=== PATIENT | female | born 1995 | race Caucasian/White ===

== ENCOUNTER 2019-02-10 18:49 | Emergency (ER) | payer BC, MEDICAID, OTHER ==
[~2019-02-10] VITALS: Ht 149.9 cm; Wt 46.0 kg
[2019-02-10 18:57] VITALS: Ht 149.9 cm; Wt 46.0 kg
--- NOTE | 2019-02-10 20:00 | ERD ---
ER Documentation Chief Complaint Chief Complaint on and off left nosebleeding since yesterday HPI 23-year-old female with no reported past medical history presents with complaint of left-sided nosebleed since yesterday. Patient states she had a rhinoplasty approximately 2 months ago, no reported complications. Nosebleed started after she thought she had a "bugger" and left nostril which she tried to remove multiple times. No reported fall or trauma. After each attempt noticed bleeding from left nostril. Most recent episode of bleeding approximately 1 to 2 hours ago which stopped spontaneously. Explained to patient in detail that she is not to manipulate nostril as she has of a clot forming which will aid and stopping her bleeding. She otherwise is without complaint. Denies shortness of breath or any respiratory symptoms. ROS All systems reviewed and are negative except as per history of present illness. Allergies Allergies: Coded Allergies: No Known Drug Allergies (Verified Allergy, Unknown, 02/10/19) PMhx/Soc Medical and Surgical Hx: pt denies Medical Hx, pt denies Surgical Hx Hx Alcohol Use: No Hx Substance Use: No Hx Tobacco Use: No Smoking Status: Never smoker FmHx Family History: No diabetes, No coronary disease, No other Physical Exam Vitals Vital Signs Date Temp Pulse Resp B/P (MAP) Pulse Ox O2 O2 Flow FiO2 Time Delivery Rate 02/10/19 98.2 95 20 129/59 100 18:57 (82) Physical Exam I have reviewed the triage vital signs. Const: Well nourished, well developed, appears stated age Eyes: PERRL, no conjunctival injection HENT: NCAT, Neck supple without meningismus, anterior chamber of left nostril with dried blood, no active bleeding CV: RRR, Warm, well-perfused extremities RESP: CTAB, Unlabored respiratory effort GI: soft, non-tender, non-distended, no masses MSK: No gross deformities appreciated Skin: Warm, dry. No rashes Neuro: grossly non focal Psych: Appropriate mood and affect. Procedures/MDM 23-year-old female who presents with epistaxis. Bleeding has resolved. I have low suspicion for any acute process warranting further emergent care or work-up as bleeding likely anterior based on examination and history of. Will discharge with information about controlling nosebleeds and strict return precautions. DISPOSITION PLAN: We discussed follow up with the patient's primary care doctor within 24 to 48 hours. Patient counseled regarding my diagnostic impression and care plan. Prior to discharge all questions answered. Pt agrees with treatment plan and understands strict return precautions. Precautionary instructions provided including instructions to return to the ER if not improving or for any worsening or changing symptoms or concerns. Disclaimer: Inadvertent spelling and grammatical errors are likely due to EHR/dictation software use and do not reflect on the overall quality of patient care. Also, please note that the electronic time recorded on this note does not necessarily reflect the actual time of the patient encounter. Departure Diagnosis: Primary Impression: Epistaxis Condition: Stable Patient Instructions: Epistaxis (Adult) Referrals: [facility] YOU HAVE RECEIVED A MEDICAL SCREENING EXAM AND THE RESULTS INDICATE THAT YOU DO NOT HAVE A CONDITION THAT REQUIRES URGENT TREATMENT IN THE EMERGENCY DEPARTMENT. FURTHER EVALUATION AND TREATMENT OF YOUR CONDITION CAN WAIT UNTIL YOU ARE SEEN IN YOUR DOCTORS OFFICE WITHIN THE NEXT 1-2 DAYS. IT IS YOUR RESPONSIBILITY TO MAKE AN APPOINTMENT FOR FOLOW-UP CARE. IF YOU HAVE A PRIMARY DOCTOR --you should call your primary doctor and schedule an appointment IF YOU DO NOT HAVE A PRIMARY DOCTOR YOU CAN CALL OUR PHYSICIAN REFERRAL HOTLINE AT IF YOU CAN NOT AFFORD TO SEE A PHYSICIAN YOU CAN CHOSE FROM THE FOLLOWING [facility] [address] [facility]. [facility] [address] [facility]. [facility] [address] [facility] [facility] [address] [facility]. [facility] [address] [facility]. [facility]. [address] Additional Instructions: Call your primary care doctor TOMORROW for an appointment during the next 2-3 days.See the doctor sooner or return here if your condition worsens before your appointment time. GAURAV OROZCO PA-C February 10, 2019 20:00
[2019-02-10 20:14] VITALS: BP 118/64; PULSE 78; RESP 16
== END 2019-02-10 20:15 | disposition home or self-care (01) ==
LOC: FTE 18:49
DX: R04.0 Epistaxis (principal)
CPT/HCPCS: 99282